=== PATIENT | male | born 1960 | race Caucasian/White ===

== ENCOUNTER 2021-05-11 13:11 | Inpatient (IN) | payer BC, OTHER, SELFPAY ==
[~2021-05-11] VITALS: Ht 175.3 cm; Wt 98.5 kg
[2021-05-11] MEDS ORDERED: AZIT-12 (13:35)
--- NOTE | 2021-05-11 14:36 | REP ---
INDICATION: abd pain. COMPARISON: None. TECHNIQUE: Two views. FINDINGS: There is mild gaseous distention of the colon consistent with ileus or enteritis. No obstructive lesion is seen. Psoas margins and flank stripes are intact. No mass, organomegaly, or pathologic calcification is seen. IMPRESSION: Ileus versus enteritis pattern in the bowel gas. <Electronically signed by Robel Charles > 05/11/21 [id number]
[2021-05-11] MEDS ORDERED: NS 1,000 ML IV ONE (15:55)
[2021-05-11] MEDS ORDERED: ONDANSETRON 4MG/2ML VIAL IV ONE (15:55)
[2021-05-11 17:21] LABS: HEMATOCRIT 41.8 % (42.0-52.0); HEMOGLOBIN 14.3 g/dl (13.5-17.5); MEAN CORPUSCULAR HEMOGLOBIN 30.3 pg (27.0-33.0); MEAN CORPUSCULAR HGB CONC 34.2 g/dl (32.0-36.5); MEAN CORPUSCULAR VOLUME 88.6 fl (80.0-96.0); PLATELET COUNT, AUTOMATED 204 10^3/uL (150-450); RED BLOOD COUNT 4.72 10^6/uL (4.30-6.10); WHITE BLOOD COUNT 4.4 10^3/uL (4.0-10.0)
[2021-05-11 17:41] LABS: ALBUMIN 2.7 GM/DL (3.2-5.2); ALT/SGPT 49 U/L (12-78); BILIRUBIN,DIRECT 0.2 MG/DL (0.0-0.2); BILIRUBIN,TOTAL 0.7 MG/DL (0.2-1.0); BLOOD UREA NITROGEN 14 MG/DL (7-18); CALCIUM LEVEL 7.8 MG/DL (8.5-10.1); CARBON DIOXIDE LEVEL 26 MEQ/L (21-32); CHLORIDE LEVEL 101 MEQ/L (98-107); CREATININE FOR GFR 0.91 MG/DL (0.70-1.30); GLOMERULAR FILTRATION RATE > 60.0 (>56); GLUCOSE, FASTING 106 MG/DL (70-100); LIPASE 452 U/L (73-393); POTASSIUM SERUM 4.2 MEQ/L (3.5-5.1); SODIUM LEVEL 134 MEQ/L (136-145)
[2021-05-11 17:55] LABS: ATYPICAL LYMPH 6 % (0-5); LYMPHOCYTES 18 % (16-44); MONOCYTES 1 % (0-5); NEUTROPHILS 75 % (28-66)
[2021-05-11 17:56] LABS: PLATELET ESTIMATE NORMAL (NORMAL)
[2021-05-11] MEDS: NS 1,000 ML IV SCH (21:40)
[2021-05-11] MEDS ORDERED: ACETAMINOPHEN TAB 650MG DOSE (2X325MG) PO PRN (21:45)
[2021-05-11] MEDS ORDERED: ONDANSETRON 4MG/2ML VIAL IV PRN (21:45)
--- NOTE | 2021-05-11 22:04 | REPVR ---
PROCEDURE INFORMATION: Exam: XR Chest Exam date and time: 05/11/2021 8:48 PM Age: 60 years old Clinical indication: Other: Covid; Additional info: HX covid, bilat crackles TECHNIQUE: Imaging protocol: XR of the chest. Views: 1 view. COMPARISON: CR Abdomen,Flat Plate KUB 05/11/2021 1:30 PM FINDINGS: Lungs: There is extensive alveolar infiltrate throughout the right mid and lower lung field and contiguous with the lateral pleura. There is also some prominence of the vascular markings which may be the result of mild congestive change. There is streaky infiltrate atelectasis at the left lung base. Pleural spaces: There is no evidence of pneumothorax or pleural effusion. Heart/Mediastinum: There is mild prominence left side of the heart. Bones/joints: No bony abnormality is seen. IMPRESSION: 1. Large area of probable alveolar pneumonic infiltrate right mid and lower lung field contiguous with the lateral pleura. 2. Possible mild congestive changes. 3. Streaky infiltrate at the left lung base. Electronically signed by: Bebeto Joyce On 05/11/2021 22:03:28 PM
--- NOTE | 2021-05-11 22:07 | HPEPDOC ---
General Date of Admission May 11, 2021 at 20:58 Date of Service: May 11, 2021 Attending Physician: MARITZA VALENZUELA MD Chief Complaint The patient is a 60-year-old male admitted with a reason for visit of Abdominal Pain. History of Present Illness cc: Abdominal pain HISTORY OF PRESENT ILLNESS: This is a 60-year-old obese gentleman who presents to [facility] ER with chief complaint of abdominal bloating and pain. Patient is a very poor historian and HPI is limited. He he states that the abdominal pain has been over a week and has progressively gotten worse but when asked to describe the pain he states that he cannot describe it other than that he is feeling very bloated. He also states that he is passing a lot of gas. He states that he has been having diarrhea the past few days and has had watery stools about 3-4 times a day. He denies any blood in his stool. He states that he is also been having on and off fevers and some mild chills and loss of appetite. He states that he was tested positive for Covid but is unsure exactly when he was exposed but according to the ER staff he was tested positive about a week ago and again 2 days ago at [facility]. Patient denies any shortness of breath cough, chest pain palpitations. He does have dysgeusia. He denies any recent travels outside of the [place]. REVIEW OF SYSTEMS: General: On and off fever with some mild chills. Denies unintentional weight loss but does have some loss of appetite. HEENT: Denies changes in vision including blurry vision or double vision, or hearing loss nasal congestion or sore throat. Mallampati score of 3 Heart: Denies chest pain or chest pressure or discomfort, or palpitations, or lower extremity edema Pulm: Denies cough or sputum production or shortness of breath GI: Some mild nausea, diarrhea (watery), bloating, excessive gas and burping. Denies blood in stool Psych: Denies sadness or loss of interest in doing things, no thoughts of self- harm or suicidal ideation PAST MEDICAL HISTORY: Umbilical hernia SOCIAL HISTORY: Denies smoking, etoh or illicit drug use. denies cocaine use No recent travel history outside of the [place] FAMILY HISTORY: Noncontributory SURGICAL HISTORY: None GENERAL: The patient is a well-developed, well-nourished in no apparent distress. AAOx3 NEURO: No focal neurological deficits HEENT: Head is normocephalic and atraumatic. Extraocular muscles are intact. Pupils are equal, round, and reactive to light and accommodation. Nares appears normal. Moist mucous membranes. PULM: Clear to auscultation bilaterally. No wheezing, rhonchi or rales appreciated. CARDIO: Normal S1, S2. no significant murmurs, gallops, rubs or clicks. No signs of peripheral edema ABDOMEN: Obese, soft, bloated/tympanic on palpation, umbilical hernia is palpated and is tender on palpation. A normal bowel sounds there is no guarding. Difficult to appreciate organomegaly due to body habitus EXTREMITIES: No cyanosis, clubbing, rash, lesions. IMAGING: Abdominal x-ray impression:Ileus versus enteritis pattern in the bowel gas. ASSESSMENT AND PLAN: This is a 60-year-old gentleman who presents with abdominal pain and bloating has been getting progressively worse for the past week. He states that he has been having watery diarrhea about 3-4 times a day but denies any blood in stool. In the ER it was noted that he had an elevated lipase and some electrolyte abnormalities likely due to diarrhea. He did not have any leukocytosis but does have some atypical lymphocytes and increased neutrophil count. Abdominal x-ray showed ileus versus enteritis pattern. The hospitalist team was asked to admit the patient for further management scattered Abdominal pain/bloating No leukocytosis, subjective fever and chills noted to have some atypical lymphocytes which could be due to viral gastroenteritis less likely parasitic infection. Will order for GI panel. Because patient reports on and off fever and with his feet lymphocytes I will order for an HIV test. We will also order for hepatitis panel. We will also order for CRP [facility] cardiac risk panel. Patient does have tenderness on palpation in the epigastric region and large umbilical hernia was also palpatedwe will order an abdomen pelvis CT without contrast. Will obtain blood cultures. In the meantime we will continue maintenance fluids with normal saline. Tylenol Zofran for fever and nausea respectively. Asymptomatic Covid Satting 95% room air. According to most recent CDC guidelines no indication for dexamethasone or other corticosteroids at this time. Insufficient evidence to recommend remdesivir at this time. Obesity complicating medical care DVT prophylaxis Heparin CODE STATUS full Disposition: Pending clinical improvement Home Medications Scheduled Em/Brigittebulg/B.bif/S.therm (Mary Ann-Bid Caplet) 1 Each Tablet, 1 EA PO DAILY Simethicone (Simethicone) 180 Mg Capsule, 1 CAP PO TID Tamsulosin HCl (Flomax) 0.4 Mg Capsule, 0.4 MG PO QHS, (Reported) Scheduled PRN Albuterol Sulfate (Proair Hfa) 8.5 Gm Hfa.aer.ad, 2 PUFF INH Q4H PRN for SHORTNESS OF BREATH, (Reported) Ondansetron (Ondansetron Odt) 4 Mg Tab.rapdis, 4 MG PO Q6-8HP PRN for nausea/vomiting Allergies Coded Allergies: No Known Allergies (Verified Allergy, Unknown, 05/11/21) GME ATTESTATION GME ATTESTATION My faculty preceptor for this patient encounter was physically present during the encounter and was fully available. All aspects of the patient interview, examination, medical decision making process, and medical care plan development were reviewed and approved by the faculty preceptor. The faculty preceptor is aware and concurs with the plan as stated in the body of this note and will attest to such by his/her cosignature. ATTENDING NOTE IMiracle, have independently examined this patient and performed my own physical exam, as well as reviewed the documentation and edited where necessary. I have discussed in detail with the resident / student the findings and plan of treatment as documented by the resident / student and edited their note. I agree with their findings and treatment plan and have edited their documentation. I will continue to follow the patient during this hospital stay. Parth Ordonez DO May 11, 2021 22:07 MARITZA VALENZUELA MD May 14, 2021 06:36
[2021-05-11 22:13] LABS: RSV AMPLIFICATION NEGATIVE (NEGATIVE)
[2021-05-11 22:38] LABS: ALBUMIN 2.5 GM/DL (3.2-5.2); BILIRUBIN,DIRECT 0.3 MG/DL (0.0-0.2); BILIRUBIN,TOTAL 0.7 MG/DL (0.2-1.0); C REACTIVE PROTEIN QUANTITATIV 5.43 MG/DL (0.00-0.30); CHOLESTEROL RISK RATIO 3.035 (<5); TOTAL PROTEIN 5.6 GM/DL (6.4-8.2)
--- NOTE | 2021-05-11 22:52 | REPVR ---
PROCEDURE INFORMATION: Exam: CT Abdomen Without Contrast Exam date and time: 05/11/2021 10:16 PM Age: 60 years old Clinical indication: Abdominal pain; Generalized; Additional info: Abd pain TECHNIQUE: Imaging protocol: Computed tomography images of the abdomen without contrast. Radiation optimization: All CT scans at this facility use at least one of these dose optimization techniques: automated exposure control; mA and/or kV adjustment per patient size (includes targeted exams where dose is matched to clinical indication); or iterative reconstruction. COMPARISON: CR Abdomen,Flat Plate KUB 05/11/2021 1:30 PM FINDINGS: Lungs: There are multiple triangular areas interstitial and alveolar infiltrate in both lung bases. This would be consistent with COVID-19. Heart: The heart is normal in size. Mediastinal space: Small hiatal hernia. Liver: There is a 1.5 cm low-density lesion midportion of the right lobe of the liver and this may represent a hemangioma. I would recommend correlation with a CT scan of the liver with contrast. Gallbladder and bile ducts: Normal gallbladder. Contracted gallbladder. Pancreas: Normal. No ductal dilation. Spleen: Normal spleen. Adrenals: Normal adrenal glands. There is stranding along the margins of both kidneys which could be related to pyelonephritis. Kidneys and ureters: There is no evidence of hydronephrosis. Stomach and bowel: No evidence of bowel obstruction. Appendix: The appendix appears normal in size. Intraperitoneal space: No evidence of mesenteric mass. Lymph nodes: No evidence of lymphadenopathy. Vasculature: Normal-sized aorta. Bones/joints: Anterior osteophyte formation of the lumbar spine. In Soft tissues: Unremarkable. IMPRESSION: 1. Numerous wedge-shaped areas of interstitial and alveolar infiltrate throughout both lung bases consistent with COVID-19 pneumonia. 2. Stranding along the margins of the kidneys could be the result of pyelonephritis. 3. 1.5 cm low-density lesion midportion of the right lobe of the liver probably a hemangioma but recommend CT with contrast for verification. Electronically signed by: Bebeto Joyce On 05/11/2021 22:51:58 PM
[2021-05-12] MEDS ORDERED: LevoFLOXacin IV 750 MG in IV 1 EA IV SCH ×2
[2021-05-12 00:03] LABS: HEPATITIS B SURFACE ANTIGEN NEGATIVE (NEGATIVE)
[2021-05-12 00:30] LABS: HEPATITIS B CORE ANTIBODY IGM NEGATIVE (NEGATIVE)
[2021-05-12 00:32] LABS: HEPATITIS A ANTIBODY IGM NEGATIVE (NEGATIVE)
[2021-05-12 00:40] VITALS: BP 105/65
[2021-05-12] MEDS ORDERED: AZIT-12 PO (02:02)
[2021-05-12] MEDS ORDERED: FLOM0.4C39 PO (02:02)
[2021-05-12] MEDS ORDERED: PROAAER10 INH (02:02)
[2021-05-12] MEDS ORDERED: HOME MED LIST COMPLETE! XX SCH (02:05)
[2021-05-12 06:00] VITALS: BP 107/59
[2021-05-12 07:37] LABS: BLOOD UREA NITROGEN 15 MG/DL (7-18); CALCIUM LEVEL 7.8 MG/DL (8.5-10.1); CARBON DIOXIDE LEVEL 27 MEQ/L (21-32); CHLORIDE LEVEL 100 MEQ/L (98-107); CREATININE FOR GFR 0.83 MG/DL (0.70-1.30); GLOMERULAR FILTRATION RATE > 60.0 (>56); GLUCOSE, FASTING 101 MG/DL (70-100); POTASSIUM SERUM 4.1 MEQ/L (3.5-5.1); SODIUM LEVEL 135 MEQ/L (136-145)
[2021-05-12] MEDS ORDERED: ONDA4TAB6 PO (08:03)
[2021-05-12] MEDS ORDERED: RISATAB3 PO (08:03)
[2021-05-12] MEDS ORDERED: SIME180C25 PO (08:13)
[2021-05-12] MEDS ORDERED: HEPARIN SOD (PORCINE) 5000UNITS/ML 1ML VIAL/SYRINGE SQ SCH (09:00)
[2021-05-12] MEDS ORDERED: LACTOBACILLUS ACIDOPHILUS CAP (BACID) PO SCH (09:00)
[2021-05-12] MEDS: NS 1,000 ML IV SCH (09:37)
--- NOTE | 2021-05-12 11:14 | DS.PDOC ---
Discharge Summary General Date of Admission May 11, 2021 at 20:58 Date of Discharge 05/12/2021 Attending Physician: TANVI JENKINS MD Discharge Summary PROCEDURES PERFORMED DURING STAY:None ADMITTING DIAGNOSES: Abdominal pain DISCHARGE DIAGNOSES: Covid-19 with associated enteritis COMPLICATIONS/CHIEF COMPLAINT: Abdominal Pain. HISTORY OF PRESENT ILLNESS: 60-year-old obese gentleman who presented to [facility] ER with chief complaint of abdominal bloating and pain, with associated moderate diarrhea w/ watery stools about 3-4 times a day i/s/o covid-19 infection that was diagnosed approximately 1 week prior to presentation and again 2 days prior to presentation when tested at [facility], without any shortness of breath cough, chest pain palpitations. HOSPITAL COURSE: In the ED he was hemodynamically stable, afebrile with report of intermittent fevers as can be expected for covid-19 infection and had no leukocytosis, no evidence of harrison dehydration, JERI and no hypoxemia. He was admitted overnight and given IVF, had a CT A/P that showed a potential hepatic hemangioma that I will defer to PCP for further workup and follow up with normal LFTs and othe rwise no GI evidence of severe enterocolitis or inflammation, obstruction or masses. He is now being discharged home with close PCP follow up and encouraged to continue self isolation, masking and diligent hand washing and good hygiene until resolution of all symptoms. I will also prescribe simethicone for bloating. DISCHARGE MEDICATIONS: Please see below. ALLERGIES: Please see below. PHYSICAL EXAMINATION ON DISCHARGE: VITAL SIGNS: Please see below. GENERAL: The patient is a well-developed, well-nourished in no apparent distress. AAOx3 NEURO: No focal neurological deficits HEENT: Head is normocephalic and atraumatic. Extraocular muscles are intact. Pupils are equal, round, and reactive to light and accommodation. Nares appears normal. Moist mucous membranes. PULM: Clear to auscultation bilaterally. No wheezing, rhonchi or rales appreciated. CARDIO: Normal S1, S2. no significant murmurs, gallops, rubs or clicks. No signs of peripheral edema ABDOMEN: Obese, soft, has umbilical hernia is palpated and is mildly tender on palpation. A normal bowel sounds. No guarding or rebound tenderness EXTREMITIES: WWP, no LE edema LABORATORY DATA: Please see below. IMAGING: Abdominal x-ray impression:Ileus versus enteritis pattern in the bowel gas. CT A/P: Lungs: There are multiple triangular areas interstitial and alveolar infiltrate in both lung bases. This would be consistent with COVID-19. Heart: The heart is normal in size. Mediastinal space: Small hiatal hernia. Liver: There is a 1.5 cm low-density lesion midportion of the right lobe of the liver and this may represent a hemangioma. I would recommend correlation with a CT scan of the liver with contrast. Gallbladder and bile ducts: Normal gallbladder. Contracted gallbladder. Pancreas: Normal. No ductal dilation. Spleen: Normal spleen. Adrenals: Normal adrenal glands. There is stranding along the margins of both kidneys which could be related to pyelonephritis. Kidneys and ureters: There is no evidence of hydronephrosis. Stomach and bowel: No evidence of bowel obstruction. Appendix: The appendix appears normal in size. Intraperitoneal space: No evidence of mesenteric mass. Lymph nodes: No evidence of lymphadenopathy. Vasculature: Normal-sized aorta. Bones/joints: Anterior osteophyte formation of the lumbar spine. In Soft tissues: Unremarkable. IMPRESSION: 1. Numerous wedge-shaped areas of interstitial and alveolar infiltrate throughout both lung bases consistent with COVID-19 pneumonia. 2. Stranding along the margins of the kidneys could be the result of pyelonephritis. 3. 1.5 cm low-density lesion midportion of the right lobe of the liver probably a hemangioma but recommend CT with contrast for verification. PROGNOSIS: Good ACTIVITY: As tolerated DIET: Regular DISCHARGE PLAN: Home with close PCP follow up DISPOSITION: Home DISCHARGE INSTRUCTIONS: Please stop taking antibiotics at this time. Follow up with PCP within 7d ITEMS TO FOLLOWUP ON ON OUTPATIENT: Covid-19 associated GI symptoms hepatic likely hemangioma f/u with PCP Obesity DISCHARGE CONDITION: Stable TIME SPENT ON DISCHARGE: 44 minutes. Vital Signs/I&Os Vital Signs Date Time Temp Pulse Resp B/P (MAP) Pulse Ox O2 Delivery O2 Flow Rate FiO2 05/12/21 06:00 98.0 73 16 107/59 (75) 97 Room Air I&O- Last 24 Hours up to 6 AM 05/12/21 05:59 Intake Total 1000 ml Balance 1000 ml Laboratory Data Labs 24H Laboratory Tests 2 05/11/21 16:51: Neutrophils (%) (Auto) , Nucleated Red Blood Cells % (auto) 0.0, Neutrophils 75H, Lymphocytes (Manual) 18, Monocytes (Manual) 1, Atypical Lymphocytes 6H, Red Blood Cell Morphology NORMAL, Platelet Estimate NORMAL, Anion Gap 7L, Glomerular Filtration Rate > 60.0, Calcium Level 7.8L, Total Bilirubin 0.7, Direct Bilir ubin 0.2, Aspartate Amino Transf (AST/SGOT) 59H, Alanine Aminotransferase (ALT/SGPT) 49, Alkaline Phosphatase 110, Total Protein 6.0L, Albumin 2.7L, Albumin/Globulin Ratio 0.8, Lipase 452H, Hepatitis A IgM Antibody NEGATIVE, Hepatitis B Surface Antigen NEGATIVE, Hepatitis B Core IgM Antibody NEGATIVE, Hepatitis C Antibody Index 0.0 05/11/21 21:21: Coronavirus (COVID-19)(PCR) POSITIVEA, Influenza Type A (RT-PCR) NEGATIVE, Influenza Type B (RT-PCR) NEGATIVE, Respiratory Syncytial Virus (PCR) NEGATIVE 05/11/21 22:04: Total Bilirubin 0.7, Direct Bilirubin 0.3H, Aspartate Amino Transf (AST/SGOT) 57H, Alanine Aminotransferase (ALT/SGPT) 45, Alkaline Phosphatase 97, Total Protein 5.6L, Albumin 2.5L, Albumin/Globulin Ratio 0.8, Lactate Dehydrogenase 382H, C-Reactive Protein, Quantitative 5.43H, Triglycerides Level 68, Total Cholesterol 85, LDL Cholesterol 43, Non-HDL Cholesterol (LDL + VLDL) 57, Total HDL Cholesterol 28L, Cholesterol/HDL Ratio 3.035, Amylase Level 78 05/12/21 04:04: Urine Color YELLOW, Urine Appearance CLEAR, Urine pH 6.0, Urine Specific [place] 1.015, Urine Protein 3+H, Urine Glucose (UA) NEGATIVE, Urine Ketones NEGATIVE, Urine Blood 1+H, Urine Nitrite NEGATIVE, Urine Bilirubin NEGATIVE, Urine Urobilinogen 0.2, Urine Leukocyte Esterase NEGATIVE, Urine WBC (Auto) 2, Urine RBC (Auto) 0, Urine Hyaline Casts (Auto) 0, Urine Bacteria (Auto) NEGATIVE, Urine Squamous Epithelial Cells 0, Urine Mucus (Auto) SMALL, Urine Sperm (Auto) 05/12/21 06:49: Anion Gap 8, Glomerular Filtration Rate > 60.0, Calcium Level 7.8L CBC/BMP Laboratory Tests 05/11/21 16:51 05/12/21 06:49 Microbiology Microbiology 05/11/21 Blood Culture, Received Pending 05/11/21 Blood Culture, Received Pending Discharge Medications Scheduled L.acidoph/L.bulg/B.bif/S.therm (Mary Ann-Bid Caplet) 1 Each Tablet, 1 EA PO DAILY Simethicone (Simethicone) 180 Mg Capsule, 1 CAP PO TID Tamsulosin HCl (Flomax) 0.4 Mg Capsule, 0.4 MG PO QHS, (Reported) Scheduled PRN Albuterol Sulfate (Proair Hfa) 8.5 Gm Hfa.aer.ad, 2 PUFF INH Q4H PRN for SHORTNESS OF BREATH, (Reported) Ondansetron (Ondansetron Odt) 4 Mg Tab.rapdis, 4 MG PO Q6-8HP PRN for nausea/vomiting Allergies Coded Allergies: No Known Allergies (Verified Allergy, Unknown, 05/11/21) TANVI JENKINS MD May 12, 2021 08:13
== END 2021-05-12 11:39 | disposition home or self-care (01) | DRG 137 ==
LOC: M ED 13:11 → M ED INP 20:58 → ENRESERV 22:56 → M 4MAIN 05-12 00:42
PROVIDERS: ADMIT Family Medicine; ATTEND Internal Medicine
DX: U07.1 COVID-19 (principal); D18.09 Hemangioma of other sites; K52.9 Noninfective gastroenteritis and colitis, unspecified; E66.9 Obesity, unspecified; Z79.899 Other long term (current) drug therapy

== ENCOUNTER → 2023-02-26 | Outpatient (CLI) | payer OTHER ==
[~2023-02-26] MED LIST: AZIT-12; AZIT-12 PO; FLOM0.4C39 PO; ONDA4TAB6 PO; PROAAER10 INH; RISATAB3 PO; SIME180C25 PO
== END ==
LOC: M SLEEP HO 11:01
PROVIDERS: ATTEND Nurse Practitioner Family
DX: R06.83 Snoring (principal); R40.0 Somnolence